=== PATIENT | male | born 1945 | race Caucasian/White ===

== ENCOUNTER 2022-10-28 10:15 | Emergency (ER) | payer MEDICARE, SELFPAY ==
--- NOTE | 2022-10-28 10:27 | ED.GENADULT ---
HPI - General Adult General Chief complaint: Urogenital-Male Stated complaint: unable to urinate Time Seen by Provider: 10/28/22 10:28 Source: patient Mode of arrival: ambulatory Limitations: no limitations History of Present Illness HPI narrative: 77-year-old male patient presents to the [facility] with complaints of decreased urination. Patient states he had left shoulder replacement surgery on October 13 and states he was sent home with a catheter at that time because after the surgery he was unable to urinate. Patient states he has had a couple of catheters put in the most recent 1 was removed yesterday and the urologist's office. Patient states that was removed yesterday morning and states he really has not been able to pee any significant amount since having that removed yesterday. Patient states he has had a couple of drops. Patient states he has has a lot of pressure now built up to his lower abdomen. Denies fevers, body aches or chills. Related Data Home Medications Medication Instructions Recorded Confirmed finasteride 5 mg tablet mg 10/28/22 tamsulosin 0.4 mg capsule 0.4 mg PO DAILY 10/28/22 10/28/22 Allergies Allergy/AdvReac Type Severity Reaction Status Date / Time No Known Allergies Allergy Verified 10/28/22 10:39 Review of Systems Review of Systems: CONSTITUTIONAL: Denies fever, chills, or sweats. EYES: Denies visual changes, redness, or discharge. ENT: Denies rhinorrhea, congestion, sore throat, or otalgia. CARDIOVASCULAR: Denies chest pain, palpitations, or edema. RESPIRATORY: Denies cough or dyspnea. GASTROINTESTINAL: Denies abdominal pain, nausea, vomiting, or diarrhea. GENITOURINARY: Positive dysuria denieshematuria. SKIN: Denies rash or itching. MUSCULOSKELETAL: Denies back pain, joint pain, or myalgia. NEUROLOGIC: Denies headache, numbness, or weakness. PSYCHIATRIC: Denies anxiety or depression. PMFSH Past Medical History Medical History (Updated 10/28/22 @ 11:24 by NIKI Marino) Aftercare following left shoulder joint replacement surgery Comments At the time of my signature I agree with nursing past medical history, surgical, social, and family history. There is no relevant family history pertinent to the presenting complaint. Exam Narrative: GENERAL: Well-appearing, well-nourished, and in no acute distress. HEAD: Normocephalic, atraumatic. EYES: PERRLA and EOMI. ENT: Nares clear, no rhinorrhea or epistaxis. Mucous membranes moist. NECK: Supple. No lymphadenopathy CHEST: Clear to auscultation. No respiratory distress. HEART: Regular rate and rhythm. No murmur heard. Normal peripheral pulses. ABDOMEN: Soft, nontender, nondistended, normal active bowel sounds. EXTREMITIES: Normal range of motion. No edema. SKIN: Warm, dry, no rash. NEURO: No focal deficits. Alert and oriented x3. Course Course Level of Care: Express Care Visit Vital Signs Vital signs: Vital Signs Temperature 36.9 C 10/28/22 10:36 Pulse Rate 102 H 10/28/22 10:36 Respiratory Rate 18 10/28/22 10:36 Blood Pressure 135/69 10/28/22 10:36 Pulse Oximetry 99 10/28/22 10:36 Oxygen Delivery Room Air 10/28/22 10:36 Temperature 36.9 C 10/28/22 10:41 Pulse Rate 102 H 10/28/22 10:41 Respiratory Rate 18 10/28/22 10:41 Blood Pressure 135/69 10/28/22 10:41 Pulse Oximetry 99 10/28/22 10:41 Oxygen Delivery Room Air 10/28/22 10:41 Vital signs reviewed Procedures Catheter Insertion (Urinary) Urinary Catheter 1: Date of insertion: 10/28/22 Time of insertion: 11:15 Reason for placing: Yes Reason for placing indwelling catheter: Acute urinary retention Bladder scan/ultrasound used before catheterization: No Antiseptic solution prep: Povidone-Iodine Topical anesthesia used: No Catheter type/location: Urethral Catheter balloon amount: 10 Procedure performed: without complications Medical Decision Making
[2022-10-28 10:36] VITALS: BP 135/69; PULSE 102; RESP 18; TEMP 36.9; O2SAT 99
[2022-10-28 10:41] VITALS: BP 135/69; PULSE 102; RESP 18; TEMP 36.9; O2SAT 99
--- NOTE | 2022-10-28 11:24 | PC.NURSE ---
800 out total. teaching done to empty bag
== END 2022-10-28 11:30 | disposition home or self-care (01) ==
PROVIDERS: Emergency Provider Nurse Practitioner Family; PCP Family Medicine
DX: R30.0 Dysuria (principal); Z46.6 Encounter for fitting and adjustment of urinary device
CPT/HCPCS: 51702; 99213; G0463